=== PATIENT | male | born 1960 | race Caucasian/White ===

== ENCOUNTER 2018-08-15 06:43 | Day surgery (SDC) | payer OTHER ==
[2018-08-15] MEDS ORDERED: LIDOCAINE 2% (SDV) 5 ML INJ (08:31)
[2018-08-15] MEDS ORDERED: PROPOFOL 40 ML (08:31)
[2018-08-15] MEDS ORDERED: PROPOFOL 20 ML ×2 (09:31)
== END 2018-08-15 10:27 | disposition home or self-care (01) ==
LOC: GIL 06:43
DX: Z12.11 Encounter for screening for malignant neoplasm of colon (principal); K64.8 Other hemorrhoids; I10 Essential (primary) hypertension; E78.5 Hyperlipidemia, unspecified
CPT/HCPCS: 45380; 82962; 88305